=== PATIENT | male | born 1965 | race Caucasian/White ===

== ENCOUNTER → 2024-08-04 07:38 | Outpatient (REF) | payer BC, SELFPAY | LOC: RAD 07:38 | PROVIDERS: ATTENDING PHYSICIAN Internal Medicine; FAMILY PHYSICIAN Dermatology Dermatopathology | DX: D48.9 Neoplasm of uncertain behavior, unspecified (principal); R22.2 Localized swelling, mass and lump, trunk; C43.9 Malignant melanoma of skin, unspecified | CPT/HCPCS: 71270; Q9967 ==